=== PATIENT | female | born 1970 | race Caucasian/White ===

== ENCOUNTER 2018-11-06 10:50 | Inpatient (IN) | payer BC ==
[2018-11-06 12:14] LABS: Absolute Lymphocytes (CBC) 2.3 K/uL (0.7-4.9); Absolute Monocytes 0.8 K/uL (0.1-1.3); Absolute Neutrophil 6.1 K/uL (1.8-8.0); Basophils % 0.5 % (0-1.3); Hematocrit 46.5 % (36.0-45.0); Lymphocytes % 24.2 % (15.3-44.8); MPV 9.3 fL (7.6-11.3); Monocytes % 8.8 % (3.3-12.3); RBC Red Blood Cell Count 5.55 M/uL (3.86-4.86)
[2018-11-06 12:28] LABS: Albumin 3.7 g/dL (3.4-5.0); Bilirubin Direct 0.1 mg/dL (0-0.2); Bilirubin Total 0.5 mg/dL (0.2-1.0); Potassium 3.7 mmol/L (3.5-5.1); Protein, Total 7.7 g/dL (6.4-8.2)
--- NOTE | 2018-11-06 12:30 | RAD REPORT ---
EXAM DESCRIPTION: US - Abdomen Exam Limited - 11/06/2018 12:15 pm CLINICAL HISTORY: RUQ pain COMPARISON: No comparisons FINDINGS: The gallbladder demonstrates large shadowing gallstone. No pericholecystic fluid or gallbl adder wall thickening. The common bile duct is normal measuring 5 mm. The liver demonstrates fatty liver. IMPRESSION: Cholelithiasis. Fatty liver.
[2018-11-06] MEDS ORDERED: KETOROLAC 30 MG/ML INJ ONE (12:31)
[2018-11-06] MEDS ORDERED: ONDANSETRON 4 MG/2 ML VIAL ONE (12:31)
[2018-11-06] MEDS ORDERED: MORPHINE 4 MG/ML SYR ONE (12:32)
[2018-11-06 14:02] LABS: Urine Blood 1+ (NEG); Urine Glucose NEGATIVE (NEG); Urine Protein NEGATIVE (NEG); Urine Specific Gravity 1.015 (1.005-1.030)
[2018-11-06] MEDS ORDERED: PIPER/TAZO/NS 3.375gm 3.375 GM/100 ML BAG ONE (14:29)
--- NOTE | 2018-11-06 14:45 | ER ---
Nurse's Notes [facility] Name: Aggie Schaefer Age: 48 yrs Sex: Female : 1970 Arrival Date: 11/06/2018 Time: 10:53 Bed 24 Private MD: Diagnosis: Cholecystitis, unspecified Presentation: 11/06 10:54 Presenting complaint: Patient states: Epigastric and mid abd pain, that started Monday sg and reports nausea/vomiting/diarrhea, reports the diarrhea has slowed down, reports fever that is intermittent. Transition of care: patient was not received from another setting of care. Onset of symptoms was November 06, 2018. Risk Assessment: Do you want to hurt yourself or someone else? Patient reports no desire to harm self or others. Initial Sepsis Screen: Does the patient meet any 2 criteria? No. Patient's initial sepsis screen is negative. Does the patient have a suspected source of infection? No. Patient's initial sepsis screen is negative. Care prior to arrival: None. 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 - Social history:: Smoking status: Patient/guardian denies using tobacco. - Ebola Screening: : Patient negative for fever greater than or equal to 101.5 degrees Fahrenheit, and additional compatible Ebola Virus Disease symptoms Patient denies exposure to infectious person Patient denies travel to an Ebola-affected area in the 21 days before illness onset No symptoms or risks identified at this time. Screenin:27 Abuse screen: Denies threats or abuse. Denies injuries from another. Nutritional aj screening: No deficits noted. Tuberculosis screening: No symptoms or risk factors identified. Fall Risk None identified. Assessment: 11:27 General: Appears in no apparent distress. comfortable, Behavior is calm, cooperative, aj appropriate for age. Pain: Complains of pain in epigastric area and right upper quadrant. Neuro: Level of Consciousness is awake, alert, obeys commands, Oriented to person, place, time, situation, Appropriate for age. Respiratory: Airway is patent Respiratory effort is even, unlabored, Respiratory pattern is regular, symmetrical. GI: Abdomen is non-distended, obese, Bowel sounds present X 4 quads. Abdomen is tender to palpation in epigastric area Reports upper abdominal pain, nausea, vomiting. Derm: Skin is intact, is healthy with good turgor, Skin is pink, warm \T\ dry. normal. 13:29 Reassessment: Patient states feeling better. Patient states symptoms have improved. aj Vital Signs: 10:56 BP 202 / 107; Temp 98.4(O); Pulse Ox 100% ; Weight 81.65 kg; Height 5 ft. 4 in. (162.56 sg cm); Pain 6/10; 11:27 BP 181 / 102; Pulse 82; Resp 18; Pulse Ox 96% on R/A; aj 12:37 BP 184 / 108; Pulse 80; Resp 16; Pulse Ox 96% on R/A; aj 13:29 BP 166 / 96; Pulse 86; Resp 20; Pulse Ox 98% on R/A; aj 13:47 BP 172 / 79; Pulse 77; Resp 20; Pulse Ox 97% on R/A; aj 14:28 BP 171 / 88; Pulse 88; Resp 19; Pulse Ox 99% on R/A; aj 10:56 Body Mass Index 30.90 (81.65 kg, 162.56 cm) ED Course: 10:53 Patient arrived in ED. mr 10:54 Arm band placed on. sg 10:56 Triage completed. sg 10:59 Reddy Salazar PA is PHCP. cp 10:59 Ryan Jimenez MD is Attending Physician. cp 11:27 Sandra Oneal, RN is Primary Nurse. aj 11:27 Patient has correct armband on for positive identification. Placed in gown. aj 11:27 Inserted saline lock: 22 gauge in left antecubital area, using aseptic technique. Blood aj collected. 12:15 Ultrasound completed. Patient taken to ultrasound. via wheelchair. Patient moved back lc3 from ultrasound. 12:16 US Abdomen Limited In Process Unspecified. EDMS 14:44 Tam Hassan MD is Hospitalizing Provider. ps1 15:18 Report given to Nichol DONG. aj 15:18 No provider procedures requiring assistance completed. Patient admitted, IV remains in aj place. Administered Medications: 12:34 Drug: TORadol 30 mg Route: IVP; Site: left antecubital; pt 13:30 Follow up: Response: Pain is decreased aj 12:35 Drug: Zofran 4 mg Route: IVP; Site: left antecubital; pt 13:30 Follow up: Response: Nausea is decreased aj 14:26 Drug: Zosyn 3.375 grams Route: IVPB; Infused Over: 60 mins; Site: left antecubital; aj 14:28 Not Given (Patient Refused): morphine 4 mg IVP once aj Outcome: 14:45 Decision to Hospitalize by Provider. ps1 15:20 Admitted to Med/surg accompanied by tech, via wheelchair, with chart, Report called to axel Gandara 15:20 Condition: good 15:20 Instructed on the need for admit. 15:48 Patient left the ED. aj Signatures: Dispatcher [employer] EDMS Van Colindres RN RN sg Myers, Amanda, RN RN aj Townsend, Paige, RN RN pt Sera Adler mr Reddy Salazar, PA PA Fabiano Estrada Phillip, MD MD ps1 Corrections: (The following items were deleted from the chart) 12:37 10:57 Home Meds: Klonopin Oral; aj
[2018-11-06] MEDS ORDERED: MORPHINE 4 MG/ML SYR IV PRN (17:21)
[2018-11-06] MEDS ORDERED: PIPER/TAZO/NS 3.375gm 3.375 GM/100 ML BAG IVPB SCH (18:00)
[2018-11-06] MEDS: NA CHLORIDE 0.9% 1,000 ML IV SCH (18:57)
[2018-11-06] MEDS: ONDANSETRON 4 MG/2 ML VIAL IV PRN ×2 (18:58→23:17)
[2018-11-06] MEDS: MORPHINE 4 MG/ML SYR IV PRN (23:17)
[2018-11-06] MEDS: PIPER/TAZO/NS 3.375gm 3.375 GM/100 ML BAG IVPB SCH (23:17)
[2018-11-07] MEDS: NA CHLORIDE 0.9% 1,000 ML IV SCH ×2 (04:49→18:24)
[2018-11-07] MEDS: MORPHINE 4 MG/ML SYR IV PRN (04:50)
[2018-11-07] MEDS: ONDANSETRON 4 MG/2 ML VIAL IV PRN ×2 (04:50→10:59)
[2018-11-07 06:25] LABS: Absolute Lymphocytes (CBC) 2.4 K/uL (0.7-4.9); Absolute Monocytes 0.7 K/uL (0.1-1.3); Absolute Neutrophil 4.9 K/uL (1.8-8.0); Basophils % 0.5 % (0-1.3); Eosinophils % 1.4 % (0-4.4); Hematocrit 42.7 % (36.0-45.0); Lymphocytes % 29.1 % (15.3-44.8); RBC Red Blood Cell Count 5.08 M/uL (3.86-4.86)
[2018-11-07 06:41] LABS: Albumin 3.1 g/dL (3.4-5.0); Bilirubin Direct 0.2 mg/dL (0-0.2); Bilirubin Total 0.7 mg/dL (0.2-1.0); Potassium 3.2 mmol/L (3.5-5.1); Protein, Total 6.6 g/dL (6.4-8.2)
[2018-11-07] MEDS ORDERED: ACETAMINOPHEN 325 MG TABLET PO ONE (07:59)
[2018-11-07] MEDS: PIPER/TAZO/NS 3.375gm 3.375 GM/100 ML BAG IVPB SCH ×3 (08:21→23:54)
[2018-11-07] MEDS ORDERED: HYDRALAZINE HCL 20 MG/ML VIAL IV PRN (10:50)
[2018-11-07] MEDS ORDERED: DEXAMETHASONE 10 MG/ML VIAL ONE (14:03)
[2018-11-07] MEDS ORDERED: MIDAZOLAM HCL 2 MG/2 ML INJ ONE (14:03)
[2018-11-07] MEDS ORDERED: FENTANYL CITR 100 MCG/2 ML ONE (14:03)
[2018-11-07] MEDS ORDERED: LIDOCAINE 2% MPF 5 ML VIAL ONE (14:03)
[2018-11-07] MEDS ORDERED: PROPOFOL 200 MG/20 ML VIAL IV ONE (14:03)
[2018-11-07] MEDS ORDERED: ROCURONIUM 50 MG/5 ML VIAL IV ONE (14:04)
[2018-11-07] MEDS ORDERED: BUPIVACAINE 0.5% PF 10 ML VIAL ONE (14:38)
[2018-11-07] MEDS ORDERED: Ringers Lactate 1,000 ML IV ONE (14:40)
--- NOTE | 2018-11-07 15:28 | P.BOP ---
Preoperative diagnosis: acute cholecystitis, symptomatic cholelithiasis Postoperative diagnosis: same Primary procedure: Laparoscopic cholecystectomy Fence Rider: Kelli Anderson (Janes) Estimated blood loss: <10cc Specimen: gb Findings: as above Anesthesia: General Transferred to: Recovery Room Condition: Good
[2018-11-07] MEDS ORDERED: KETOROLAC 30 MG/ML INJ ONE (15:36)
--- NOTE | 2018-11-07 16:56 | P.CNS ---
Date of Consult: 11/07/18 Reason for Consult: HTN Requesting Physician: Tam Hassan Chief Complaint: Cholecystitis History of Present Illness: This is a 48-year-old female with past medical history of hypertension not on any medication at this time of presented to the ED complaining of having right upper quadrant pain, nausea vomiting at this time. Patient was found to have acute cholecystitis and was admitted to the hospital under general surgery is service. Patient when admitted to the hospital had elevated blood pressure and does medicine team was consulted for treatment of her hypertension Allergies levofloxacin [From Levaquin] Allergy (Verified 05/05/14 12:46) Shortness of breath Home Medications: Vilazodone HCl [Viibryd] 20 each PO DAILY WITH BREAKFAST 11/06/18 clonazePAM [Klonopin] 0.5 mg PO BID PRN 11/06/18 - Past Medical/Surgical History Diabetic: No -: Depression and anxiety -: Hysterectomy -: Tummy tuck -: Breast reduction and augmentatiom - Social History Alcohol use: Yes CD- Drugs: No Caffeine use: Yes Place of Residence: Home Review of Systems 10-point ROS is otherwise unremarkable Physical Examination Temp Pulse Resp BP Pulse Ox 98.9 F 99 H 16 157/90 H 97 11/07/18 16:34 11/07/18 16:34 11/07/18 16:34 11/07/18 16:34 11/07/18 12:00 General: Alert, In no apparent distress HEENT: Atraumatic, PERRLA, Mucous membr. moist/pink, EOMI, Sclerae nonicteric Neck: Supple, 2+ carotid pulse no bruit, No LAD, Without JVD or thyroid abnormality Respiratory: Clear to auscultation bilaterally, Normal air movement Cardiovascular: Regular rate/rhythm, Normal S1 S2 Gastrointestinal: Normal bowel sounds, No tenderness Musculoskeletal: No tenderness Integumentary: No rashes Neurological: Normal gait, Normal speech, Normal tone, Normal affect Lymphatics: No axilla or inguinal lymphadenopathy - Problems (1) Cholecystitis Onset Date: 11/07/18 Current Visit: Yes Status: Acute Plan: Acute cholecystitis -general surgery is primary on the case -patient scheduled for lap [place] today with general surgeon -continue with IV antibiotics and pain management according to general surgery (2) Hypertension Current Visit: Yes Status: Acute Plan: Patient with diagnosis of hypertension however does not take any medication at home -high blood pressure could be related to pain versus increased stress and anxiety given the current condition -will start with IV p.r.n. low pressure medication at this time. Will reassess the patient post surgery to see the need for oral hypertensive medication. -according to the [employer] 9 guidelines patient's goal blood pressure should be 140/ 80 Qualifiers: Hypertension type: essential hypertension Qualified Code(s): I10 - Essential (primary) hypertension Conclusions/Impression: Patient is currently scheduled to get a lap cholecystectomy with general surgery at this time. Will continue with IV p.r.n. blood pressure medication. Post surgery we will assess patient's blood pressure and start her on oral medication at that time. Will follow patient along with general surgery. Thank you for the kind Consult Critical Care: No
[2018-11-07] MEDS: ONDANSETRON 4 MG (ODT) TAB PO PRN (18:20)
[2018-11-07] MEDS: KCL 20 MEQ/100 mL IVPB 20 MEQ/100 ML BAG IV SCH (18:20)
[2018-11-07] MEDS: HYDROCODONE/APAP 7.5/325 MG TAB PO PRN ×2 (19:41→23:52)
--- NOTE | 2018-11-07 23:54 | HP ---
Date of Admission: 11/06/2018 Diagnosis: Epigastric right upper quadrant pain. History Of Present Illness: This is a case of a 48-year-old patient who comes to us with epigastric right upper quadrant pain radiating to the back, with nausea and vomiting, at least for a day in dura tion. She was trying to get better, but she did not get better, and she came to the ER, and the pain did not go away. 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 The patient was diagnosed with acute cholecystitis and symptomatic cholelithiasis. The patient wanted surgery done d uring this admission. So, the patient was admitted to the hospital and started on IV antibiotics, sander wel rest, n.p.o., and then explained to her the options. Past Medical History: Hypertension, anxiety, depression. Medications: Klonopin. Allergies: LEVAQUIN. Past Surgical History: Surgeries include hysterectomy and a tummy tuck by Dr. Zhang in [place]. Social History: She does not smoke. She does not drink alcohol. Family History: Noncontributory. Review of Systems: Ten points otherwise unremarkable. Physical Examination: General: The patient is awake and alert. HEENT: Pupils are equal and reactive, anicteric. Neck: Supple. Chest: Clear. Abdomen: Epigastric right upper quadrant pain with radiation to the back. The rest of the abdomen i s soft and depressible. Che sign positive. Pelvic: Deferred. Rectal: Deferred. Breasts: Deferred. Extremities: Good capillary refill. Neurologic: Cranial nerves 2 through 12 grossly within normal limits. Diagnostic Studies: Abdominal ultrasound shows cholelithiasis. Assessment And Plan: This is a 48-year-old patient with acute cholecystitis, symptomatic cholelithia sis. I fully explained the benefits, alternatives, and risks of laparoscopic, possible open cholecys tectomy, which include, but are not limited to infection, bleeding, damage to adjacent structures, an esthesia complications, choledocholithiasis, bile leak, pancreatitis, myocardial infarction, and even . She also understands this may not relieve the symptoms. She might need more than one surgic al intervention. She understood and signed a consent. We checked her blood work. The total bilirub in is 0.7 with potassium 3.2. It will be replaced. Hemoglobin of 16.1. DANYELL/NADINE Voice ID: [id number]
[2018-11-08] MEDS: KCL 20 MEQ/100 mL IVPB 20 MEQ/100 ML BAG IV SCH (01:19)
[2018-11-08] MEDS ORDERED: KCL 20 MEQ/100 mL IVPB 20 MEQ/100 ML BAG IV ONE (01:28)
--- NOTE | 2018-11-08 02:04 | OP ---
Date of Procedure: 11/07/2018 Surgeon: Tam Hassan MD Preoperative Diagnosis: Acute cholecystitis, symptomatic cholelithiasis. Postoperative Diagnosis: Acute cholecystitis, symptomatic cholelithiasis. Procedure: Laparoscopic cholecystectomy. Anesthesia: General plus local. Specimen: Gallbladder. Estimated Blood Loss: Less than 10 cc. Indications: This is the case of a 48-year-old patient with above diagnosis. Fully explained the be nefits, alternatives, and risks of laparoscopic, possible open cholecystectomy, which include but are not limited to infection, bleeding, damage to adjacent structures, anesthesia complication, choledoc holithiasis, bile leak, pancreatitis, [place], and even . She also understands this may not relieve any symptoms, she might need more than one surgical intervention. She understood, signed a consent. Description Of Procedure: The patient was brought to the operating room, placed in supine position. Anesthesia was induced without complication. Abdominal area was prepped and draped in usual sterile fashion. Marcaine 0.5% injected for local anesthetic, followed by sharp incision of skin in the inf raumbilical region. The patient has a previous tummy tuck. So, we used the previous incision in the periumbilical region. Incision was carried down to fascia, which was opened under direct vision. P eritoneum was encountered, opened under direct vision. Vicryl #1 placed inside the fascia. Juno t rocar was carefully introduced and pneumoperitoneum was obtained. I placed 3 more trocars, 5 mm each one of them in the epigastric and right upper quadrant area under direct visualization, placed a gra sper in the fundus of the gallbladder, another grasper in the infundibulum, retracted the gallbladder in the inferolateral fashion exposing the triangle of Calot and obtaining critical view of safety. The cystic duct and cystic artery were clearly isolated free circumferentially and a connection betwe en those and the gallbladder was clearly identified. I proceeded to ligate those by using at least 3 clips proximal, 1 clip distal, ligation in middle. Same was done with the cystic artery. No bile l eak. No bleeding. The gallbladder was removed from liver using Bovie cauterizer and removed from ab dominal cavity using EndoCatch through the umbilical incision. The area was inspected once again. N o bile leak. No bleeding. At that moment, I proceeded to remove the trocars under direct vision, de flated pneumoperitoneum, closed the fascia with #1 Vicryl. Irrigated subcutaneous tissue, closed marta t with 3-0 chromic, and skin in a subcuticular fashion and Steri-Strips on top. Sponge count and ins trument counts were correct. The patient tolerated the procedure well. The patient was sent to [facility] in stable condition. DANYELL/NADINE Voice ID: [id number] Report ID: [id number]
[2018-11-08] MEDS: HYDROCODONE/APAP 7.5/325 MG TAB PO PRN ×2 (04:21→08:48)
[2018-11-08] MEDS: ONDANSETRON 4 MG (ODT) TAB PO PRN ×2 (04:21→08:48)
[2018-11-08] MEDS: NA CHLORIDE 0.9% 1,000 ML IV SCH (04:23)
[2018-11-08] MEDS ORDERED: LOSARTAN POTASSIUM 50 MG TABLET PO ONE (05:14)
[2018-11-08] MEDS: METOPROLOL TAR 50 MG TAB PO SCH ×2 (05:37→21:09)
[2018-11-08] MEDS: LOSARTAN/HCTZ 50-12.5 PO SCH (10:26)
--- NOTE | 2018-11-08 11:37 | ECHO ---
HEIGHT: 5 ft 4 in WEIGHT: 180 lb 0 oz DATE OF STUDY: 11/08/[address]: 2-DIMENSIONAL: YES M.MODE: YES DOPPLER: YES COLOR FLOW: YES TDS: NO PORTABLE: NO DEFINITY: NO BUBBLE STUDY: NO DIAGNOSIS: ABDOMINAL PAIN CARDIAC HISTORY: CATHERIZATION: NO SURGERY: NO PROSTHETIC VALVE: NO PACEMAKER: NO MEASUREMENTS (cm) DIASTOLIC (NORMALS) SYSTOLIC (NORMALS) IVSd 1.1 (0.6-1.2) LA Diam 3.0 (1.9-4.0) LVEF 76% LVIDd 4.1 (3.5-5.7) LVIDs 2.3 (2.0-3.5) %FS 44% LVPWd 1.1 (0.6-1.2) Ao Diam 3.0 (2.0-3.7) 2 DIMENSIONAL ASSESSMENT: RIGHT ATRIUM: NORMAL LEFT ATRIUM: NORMAL RIGHT VENTRICLE: NORMAL LEFT VENTRICLE: NORMAL TRICUSPID VALVE: NORMAL MITRAL VALVE: NORMAL PULMONIC VALVE: NORMAL AORTIC VALVE: NORMAL PERICARDIAL EFFUSION: NONE AORTIC ROOT: NORMAL LEFT VENTRICULAR WALL MOTION: NORMAL. DOPPLER/COLOR FLOW: NORMAL. COMMENTS: NORMAL 2D ECHOCARDIOGRAM WITH DOPPLER. NO WALL MOTION ABNORMALITY. NO EFFUSION. TECHNOLOGIST: DUANE PAREKH
--- NOTE | 2018-11-08 11:46 | P.PN ---
Subjective Date of Service: 11/08/18 Chief Complaint: Cholecystitis Subjective: Tolerating diet, Ambulating, Improving, Working w/ PT, Doing well Review of Systems 10-point ROS is otherwise unremarkable Physical Examination - Vital Signs Temperature: 97.2 F Blood Pressure: 176/88 Pulse: 80 Respirations: 18 Pulse Ox (%): 97 - Physical Exam General: Alert, In no apparent distress HEENT: Atraumatic, PERRLA, EOMI Neck: Supple, JVD not distended Respiratory: Clear to auscultation bilaterally, Normal air movement Cardiovascular: Regular rate/rhythm, Normal S1 S2 Gastrointestinal: Normal bowel sounds, No tenderness Musculoskeletal: No tenderness Integumentary: No rashes Neurological: Normal speech, Normal tone, Normal affect Lymphatics: No axilla or inguinal lymphadenopathy - Studies Medications List Reviewed: Yes Assessment And Plan - Current Problems (Diagnosis) (1) Cholecystitis Onset Date: 11/07/18 Current Visit: Yes Status: Acute Plan: Acute cholecystitis -general surgery is primary on the case -s/p Lap bob # 1 -possible home today (2) Hypertension Current Visit: Yes Status: Acute Plan: Patient with diagnosis of hypertension however does not take any medication at home -high blood pressure could be related to pain versus increased stress and anxiety given the current condition -started on Hyzaar daily today. -ECHO WNL Qualifiers: Hypertension type: essential hypertension Qualified Code(s): I10 - Essential (primary) hypertension Discharge Plan: Home Plan to discharge in: 48 Hours - Code Status/Comfort Care Code Status Assessed: Yes Critical Care: No
[2018-11-08] MEDS: MORPHINE 4 MG/ML SYR IV PRN ×2 (12:52→17:06)
[2018-11-08] MEDS: ONDANSETRON 4 MG/2 ML VIAL IV PRN ×2 (12:52→17:08)
[2018-11-08 13:22] LABS: Magnesium 1.8 mg/dL (1.8-2.4); Phosphorus 2.3 mg/dL (2.5-4.9); Potassium 3.5 mmol/L (3.5-5.1)
[2018-11-08] MEDS ORDERED: POTASSIUM CL SA 10 MEQ TAB PO ONE (15:34)
[2018-11-09] MEDS: MORPHINE 4 MG/ML SYR IV PRN (00:14)
[2018-11-09 06:43] LABS: BUN Blood Urea Nitrogen 7 mg/dL (7-18); Bicarbonate 27 mmol/L (21-32); Glucose Level 96 mg/dL (74-106); Magnesium 1.9 mg/dL (1.8-2.4); Potassium 3.6 mmol/L (3.5-5.1); Sodium Level 138 mmol/L (136-145)
[2018-11-09] MEDS ORDERED: LOSARTAN/HCTZ 50-12.5 PO SCH (09:00)
[2018-11-09] MEDS ORDERED: POTASSIUM CL SA 10 MEQ TAB PO ONE (09:00)
[2018-11-09] MEDS: METOPROLOL TAR 50 MG TAB PO SCH (09:55)
[2018-11-09] MEDS: LOSARTAN/HCTZ 50-12.5 PO SCH (09:55)
--- NOTE | 2018-11-09 12:54 | P.PN ---
Subjective Date of Service: 11/09/18 Chief Complaint: Cholecystitis Subjective: Tolerating diet, Ambulating, Improving, Working w/ PT, Doing well Review of Systems 10-point ROS is otherwise unremarkable Physical Examination - Vital Signs Temperature: 96.8 F Blood Pressure: 160/90 Pulse: 66 Respirations: 16 Pulse Ox (%): 95 - Physical Exam General: Alert, In no apparent distress HEENT: Atraumatic, PERRLA, EOMI Neck: Supple, JVD not distended Respiratory: Clear to auscultation bilaterally, Normal air movement Cardiovascular: Regular rate/rhythm, Normal S1 S2 Gastrointestinal: Normal bowel sounds, No tenderness Musculoskeletal: No tenderness Integumentary: No rashes Neurological: Normal speech, Normal tone, Normal affect Lymphatics: No axilla or inguinal lymphadenopathy - Studies Medications List Reviewed: Yes Assessment And Plan - Current Problems (Diagnosis) (1) Cholecystitis Onset Date: 11/07/18 Current Visit: Yes Status: Acute Plan: Acute cholecystitis -general surgery is primary on the case -s/p Lap bob # 3 -possible home today (2) Hypertension Current Visit: Yes Status: Acute Plan: Patient with diagnosis of hypertension however does not take any medication at home -ON hyzaar now. Elevated BP still. -Asked patient to record the BP at home and adjust the medication post F.u with PCP Qualifiers: Hypertension type: essential hypertension Qualified Code(s): I10 - Essential (primary) hypertension Discharge Plan: Home Plan to discharge in: 24 Hours - Code Status/Comfort Care Code Status Assessed: Yes Critical Care: No
--- NOTE | 2018-11-09 14:27 | P.DS ---
Admission Date: 11/06/18 Discharge Date: 11/09/18 Disposition: ROUTINE DISCHARGE Discharge Condition: GOOD Reason for Admission: Cholecystitis Vital Signs/Physical Exam: Temp Pulse Resp BP Pulse Ox 96.8 F 66 16 160/90 H 95 11/09/18 12:54 11/09/18 12:54 11/09/18 12:54 11/09/18 12:54 11/09/18 12:54 General: Alert, Oriented x3, Cooperative HEENT: PERRLA, EOMI Neck: Supple Respiratory: Normal air movement Gastrointestinal: Soft and benign Musculoskeletal: No erythema, No tenderness, No warmth Integumentary: No erythema, No warmth, No cyanosis Neurological: Normal speech Laboratory Data at Discharge: WBC 8.2 K/uL (4.3-10.9) 11/07/18 05:48 Hgb 14.8 g/dL (12.0-15.0) 11/07/18 05:48 Hct 42.7 % (36.0-45.0) 11/07/18 05:48 Plt Count 210 K/uL (152-406) 11/07/18 05:48 Sodium 138 mmol/L (136-145) 11/09/18 05:58 Potassium 3.6 mmol/L (3.5-5.1) 11/09/18 05:58 BUN 7 mg/dL (7-18) 11/09/18 05:58 Creatinine 0.69 mg/dL (0.55-1.3) 11/09/18 05:58 Glucose 96 mg/dL (74-106) 11/09/18 05:58 Phosphorus 2.3 mg/dL (2.5-4.9) L 11/08/18 12:55 Magnesium 1.9 mg/dL (1.8-2.4) 11/09/18 05:58 Total Bilirubin 0.7 mg/dL (0.2-1.0) 11/07/18 05:48 AST 35 U/L (15-37) 11/07/18 05:48 ALT 84 U/L (12-78) H 11/07/18 05:48 Alkaline Phosphatase 81 U/L (45-117) 11/07/18 05:48 Amylase 26 U/L (25-115) 11/07/18 05:48 Lipase 75 U/L (73-393) 11/07/18 05:48 Home Medications: Vilazodone HCl [Viibryd] 20 each PO DAILY WITH BREAKFAST 11/06/18 clonazePAM [Klonopin] 0.5 mg PO BID PRN 11/06/18 Losartan/Hydrochlorothiazide [Hyzaar 50-12.5 Tablet] 1 each PO DAILY #30 tablet 11/08/18 Amox/Clavulanate [Augmentin 875-125 Tab] 875 mg PO BID #12 tab 11/09/18 Hydrocodone/Acetaminophen [Vicodin 5-325 mg Tablet] 1 each PO Q4H #30 tablet New Medications: Amox/Clavulanate [Augmentin 875-125 Tab] 875 mg PO BID #12 tab Hydrocodone/Acetaminophen [Vicodin 5-325 mg Tablet] 1 each PO Q4H #30 tablet Losartan/Hydrochlorothiazide [Hyzaar 50-12.5 Tablet] 1 each PO DAILY #30 tablet Patient Discharge Instructions: Keep area dry for 24h then may shower. Keep sterile strips intact. Diet: Regular Activity: Ad leanne Followup: Tam Hassan MD [ACTIVE - CAN ADMIT] - 1 Week
== END 2018-11-09 15:00 | disposition home or self-care (01) | DRG 419 ==
LOC: ER 10:50 → ERHOLD 14:00 → 2ND 15:19
PROVIDERS: ADMIT Surgery; ATTEND Surgery
PROC: 0FT44ZZ Resection of Gallbladder, Percutaneous Endoscopic Approach (ICD-10-PCS; principal; 2018-11-07 15:15)
DX: K81.0 Acute cholecystitis (principal); I10 Essential (primary) hypertension
CPT/HCPCS: 36415; 76705; 80048; 80053; 80076; 81003; 82150; 83690; 83735; 84100; 84132; 85025; 88304; 93306; 96374; 96375; 99285; J0360; J1100; J2250; J2405; J2543; J2704; J3010; J7030